=== PATIENT | male | born 1970 | race Two or more races ===

== ENCOUNTER 2017-06-19 08:43 | Emergency (ER) | payer MEDICAID ==
[~2017-06-19] VITALS: Ht 165.1 cm; Wt 79.4 kg
[2017-06-19 09:06] VITALS: BP 157/96
[2017-06-19] MEDS ORDERED: KETOROLAC TROMETH 60MG/2ML VIAL IM ONE (10:15)
== END 2017-06-19 10:53 | disposition home or self-care (01) ==
LOC: EDBD 08:43 → ER 08:43
DX: S16.1XXA Strain of muscle, fascia and tendon at neck level, initial encounter (principal); V43.52XA Car driver injured in collision with other type car in traffic accident, initial encounter; Y93.89 Activity, other specified; Y99.8 Other external cause status; Y92.410 Unspecified street and highway as the place of occurrence of the external cause
CPT/HCPCS: 72040; 96372; 99284; J1885

== ENCOUNTER 2022-09-20 13:25 | Emergency (ER) | payer MEDICAID ==
[~2022-09-20] VITALS: Ht 162.6 cm; Wt 68.0 kg
[~2022-09-20 13:25] MED LIST: ASPI-325 PO; ATOR20TA50 PO; CAR3125T PO; CLOP75TA70 PO; LOS25T PO
[2022-09-20 13:40] VITALS: BP 127/69
[2022-09-20] MEDS ORDERED: CAR3125T PO (15:24)
[2022-09-20] MEDS ORDERED: ASPI-325 PO (15:24)
[2022-09-20] MEDS ORDERED: LOS25T PO (15:24)
[2022-09-20] MEDS ORDERED: ATOR20TA50 PO (15:24)
[2022-09-20] MEDS ORDERED: CLOP75TA70 PO (15:24)
== END 2022-09-20 15:38 | disposition home or self-care (01) ==
LOC: ER 13:25
DX: I10 Essential (primary) hypertension (principal); E78.5 Hyperlipidemia, unspecified; F41.9 Anxiety disorder, unspecified; Z76.0 Encounter for issue of repeat prescription

== ENCOUNTER 2024-05-06 21:56 | Emergency (ER) | payer MEDICAID ==
[~2024-05-06] VITALS: Ht 165.1 cm; Wt 67.4 kg
[2024-05-07] MEDS ORDERED: AMIT25TA20 PO (00:20)
--- NOTE | 2024-05-07 00:20 | ED.PDOC ---
Eye-HPI HPI Comments This is a 54-year-old male presents to the ED chief complaint buzzing sound left ear side of his head. Patient states symptoms been going on for 2 weeks. Has not appointment in 1 month with his PCP. Currently taking trazodone at sleep. Reports no other related symptoms. Denies dizziness, difficulty breathing, ch est pain, headache, injury, fevers, chills, vomiting, change in gait imbalance, or any focal neuro deficits. Chief Complaint: Headache Time Seen by MD: 22:05 Primary Care Provider: unknown Reviewed Notes: Nurses Notes, Medications, Allergies Allergies: Coded Allergies: NO KNOWN ALLERGIES (Unverified , 08/02/11) Mode of Arrival: Ambulatory Past Medical History PAST MEDICAL HISTORY: Anxiety, High Lipids, HTN, Denies Surgical History: Denies all surgeries Family History Family History: Reviewed,noncontributory to illness Social History Smoker: Non-Smoker Alcohol: Denies ETOH Use Drugs: Denies Drug Use Lives In: Home Constitutional: denies: chills, diaphoresis, fatigue, fever, malaise, sweats, weakness, others EENTM: reports: ear pain; denies: blurred vision, double vision, ear bleeding, ear discharge, ear drainage, ear ringing, eye pain, eye redness, hearing loss, mouth pain, mouth swelling, nasal discharge, nose bleeding, nose congestion, nose pain, photophobia, tearing, throat pain, throat swelling, voice changes, others Respiratory: denies: cough, hemoptysis, orthopnea, SOB at rest, shortness of breath, SOB with excertion, stridor, wheezing, others Cardiovascular: denies: chest pain, dizzy spells, diaphoresis, Dyspnea on exertion, edema, irregular heart beat, left arm pain, lightheadedness, palpitations, PND, syncope, others Gastrointestinal: denies: abdomen distended, abdominal pain, blood streaked bowels, constipated, diarrhea, dysphagia, difficulty swallowing, hematemesis, melena, nausea, poor appetite, poor fluid intake, rectal bleeding, rectal pain, vomiting, others Genitourinary: denies: burning, dysuria, flank pain, frequency, hematuria, incontinence, penile discharge, penile sore, pain, testicle pain, testicle swelling, urgency, others Neurological: reports: headache; denies: dizziness, fainting, left sided numbness, left sided weakness, numbness, paresthesia, pre-existing deficit, right sided numbness, right sided weakness, seizure, speech problems, tingling, tremors, weakness, others Musculoskeletal: denies: back pain, gout, joint pain, joint swelling, muscle pain, muscle stiffness, neck pain, others Integumetry: denies: bruises, change in color, change in hair/nails, dryness, laceration, lesions, lumps, rash, wounds, others Allergic/Immunocompromised: denies: Difficulty Healing, Frequent Infections, Hives, Itching, others Hematologic/Lymphatic: denies: anemia, blood clots, easy bleeding, easy bruising, swollen glands, others Endocrine: denies: excessive hunger, excessive sweating, excessive thirst, excessive urination, flushing, intolerance to cold, intolerance to heat, unexplained weight gain, unexplained weight loss, others Psychiatric: denies: anxiety, bipolar disorder, depression, hopeless, panic disorder, schizophrenia, sleepless, suicidal, others Physical Exam General Appearance: No Apparent Distress, Normal HEENT: Normal ENT Inspection, Pharynx Normal, TMs Normal Neck: Full Range of Motion, Non-Tender, Normal, Normal Inspection Respiratory: Chest Non-Tender, Lungs Clear, No Accessory Muscle Use, No Respiratory Distress, Normal Breath Sounds Cardiovascular: No Edema, No JVD, No Murmur, No Gallop, Normal Peripheral Pulses, Regular Rate/Rhythm Breast Exam: Deferred Gastrointestinal: No Organomegaly, Non Tender, No Pulsatile Mass, Normal Bowel Sounds, Soft Genitalia: Deferred Pelvic: Deferred Rectal: Deferred Extremities: Normal capillary refill, Normal inspection, Normal range of motion, Non-tender, No pedal edema Musculoskeletal : Apperance: Normal Neurologic: Alert, planning director II-XII nml as Tested, No Motor Deficits, Normal Affect, Normal Mood, No Sensory Deficits Cerebellar Function: Normal Reflexes: Normal Skin: Dry, Normal Color, Warm Lymphatic: No Adenopathy Was a procedure done? Was a procedure done?: No EENT DIFF Eye: N/A Ear: Barotrauma X-Ray, Labs, Meds, VS Vital Signs Date Time Temp Pulse Resp B/P (MAP) Pulse Ox O2 Delivery O2 Flow Rate FiO2 05/06/24 22:08 97.9 85 17 140/87 (104) 96 X-Ray, Labs, Meds, VS Comment Likely tinnitus. Patient given Decadron 10 mg IM reports improvement requesting discharge at this time. Advised him to stop the trazodone at night and take amitriptyline. Advised to keep his appointment with his PCP in 30 days for referral to ENT. ER return precautions given. Patient indicated understanding. Discharge plan of care. Time of 1ST Reevaluation: 00:18 Reevaluation 1ST: Improved Patient Education/Counseling: Diagnosis, Treatment, Prognosis, Need For Follow Up Family Education/Counseling: No Family Present Departure 1 Departure Time of Disposition: 00:19 Impression: Primary Impression: Tinnitus of left ear Disposition: 01 HOME / SELF CARE / HOMELESS Condition: Stable e-Prescriptions Amitriptyline Hcl (Amitriptyline Hcl) 25 Mg Tab 1 TAB PO QPM for 30 Days, #30 TAB Stop trazodone at night Prov: ANGELINA MARTIN 05/07/24 Discharged With: Self Critical Care Note Critical Care Time?: No Stability Stability form required: ANGELINA Person May 07, 2024 00:20
[2024-05-07] MEDS: DexAMETHasone SOD PHOS 10MG/1ML VIAL INJ IM ONE (00:28)
[2024-05-07 00:31] VITALS: BP 134/85; PULSE 71; RESP 18; TEMP 97.7; O2SAT 97
== END 2024-05-07 00:36 | disposition home or self-care (01) ==
LOC: ER 22:03
DX: H93.12 Tinnitus, left ear (principal); I10 Essential (primary) hypertension; E78.5 Hyperlipidemia, unspecified; F41.9 Anxiety disorder, unspecified
CPT/HCPCS: 96372; 99283; J1100; J7030